=== PATIENT | female | born 1950 | race Caucasian/White ===

== ENCOUNTER 2020-10-18 06:26 | Day surgery (SDC) | payer MEDICARE, OTHER, SELFPAY ==
[2020-10-14 14:52] VITALS: BMI 32.3
[2020-10-18] VITALS (7 sets, daily range): BP systolic 102–137; BP diastolic 59–84; PULSE 61–83; RESP 11–16; TEMP 35.8–36.6; O2SAT 89–95; BMI 33.9
[2020-10-18] MEDS: LACTATED RINGERS 1,000 ML 100 ML IV ×2 (07:09→08:42)
[2020-10-18 07:26] LABS: COVID19 -Nasal RAPID Negative (Negative)
--- NOTE | 2020-10-18 07:30 | PM.PREOP ---
Pre-operative Note Interval Note History & Physical reviewed/Exam performed by Physician: Yes Changes to H&P: No
[2020-10-18] MEDS: CEFAZOLIN 1 GM VIAL 2 GM IV (08:00)
--- NOTE | 2020-10-18 08:15 | SUR.OPER ---
Lithotomy on padded OR bed, head on pillow, arms secured on padded arm boards at <90 degrees abduction. Legs secured in padded yellow fins stirrups.
[2020-10-18] MEDS: [UNRECOGNIZED DRUG - OTHER] IRR (09:22)
--- NOTE | 2020-10-18 09:27 | P.OP_ITS ---
Operative Date/Time/Diagnoses Date of procedure: 10/18/20 Time of procedure: 09:27 Pre-op diagnosis: Recurrent bladder cancer Post-op diagnosis: same Procedure & Clinicians Procedure: 1. Transurethral resection of bladder tumor (less than 0.5 cm). 2. Cystoscopy and installation mitomycin-C (20 mg). Same procedure as scheduled: Yes Indications: Recurrent papillary neoplasm anterior bladder wall. Click Yes if Unassisted: Yes Anesthesia Type: General Operative Notes Findings: Solitary papillary recurrence located in the anterior bladder wall. Closure Type: not applicable Specimen(s): none sent Estimated Blood Loss (mL): 0 Blood products transfused: none Procedure in detail: Patient was positioned in supine was administered general anesthesia. She was then repositioned semi lithotomy and the lower abdomen, groin, and genitalia were prepped and draped in sterile fashion. Flexible cystoscope was then introduced in lower urinary tract with the findings as described above. Operative plan was to laser at blade the lesion. However, due to technical issues with the laser generator the lesion was cautery destroyed with the Bugbee. Hemostasis was excellent. The bladder was left partially filled and flexible cystoscope was then removed. A 16 Vietnamese Weston catheter was then inserted in the bladder the balloon inflated 10 cc and the contents drained. A 20 cc solution containing 20 mg mitomycin-C were then instilled in the bladder and catheter plug was placed for anticipated 2 hour postop retention. The patient was then repositioned supine, was awakened, and then transferred to [facility] in stable condition. Complications: none Post-operative Condition: stable Disposition: PACU Plan for aftercare: Discharge home
[2020-10-18] MEDS: OXYCODONE/ACETAMINOPHEN 5/325 TABLET 1 TAB PO (09:37)
--- NOTE | 2020-10-18 11:47 | SUR.PHASEII ---
Patient was very understanding through OPD care, in spite of bladder fullness. Urine/medication drained at 11:10 as ordered and ortega DC'd. HOB elevated and coffee was given. Denies pain/nausea. Stable and appreciative of care.
== END 2020-10-18 11:33 | disposition home or self-care (01) ==
PROVIDERS: PCP Nurse Practitioner Family; Referring Provider Specialist; Visit Provider Specialist
PROC: (CPT 52224; principal; 2020-10-18 07:45)
DX: C67.9 Malignant neoplasm of bladder, unspecified (principal); Z20.822 Contact with and (suspected) exposure to COVID-19; I10 Essential (primary) hypertension; E66.9 Obesity, unspecified; Z68.32 Body mass index [BMI] 32.0-32.9, adult
CPT/HCPCS: 52224; 82962; 87635; J0690; J1100; J2405; J2704; J3010; J9280

== ENCOUNTER → 2021-01-21 08:41 | Outpatient (CLI) | payer MEDICARE, OTHER, SELFPAY ==
[2021-01-21 11:29] LABS: COVID19 -Nasal RAPID Negative (Negative)
== END ==
PROVIDERS: PCP Nurse Practitioner Family; Visit Provider Specialist
DX: Z20.822 Contact with and (suspected) exposure to COVID-19 (principal)
CPT/HCPCS: 87635; C9803

== ENCOUNTER 2021-01-24 06:33 | Day surgery (SDC) | payer MEDICARE, OTHER, SELFPAY ==
[2021-01-19 11:58] VITALS: BMI 35.4
[2021-01-24] VITALS (9 sets, daily range): BP systolic 67–129; BP diastolic 40–78; PULSE 62–78; RESP 8–93; TEMP 36.3–37.2; O2SAT 8–95; BMI 35.4
[2021-01-24] MEDS: LACTATED RINGERS 1,000 ML 42 ML IV (07:09)
[2021-01-24] MEDS: ACETAMINOPHEN 325 MG TABLET 975 MG PO (07:18)
--- NOTE | 2021-01-24 07:28 | SUR.OPER ---
Lithotomy on padded OR bed, head on pillow, arms secured on padded arm boards at <90 degrees abduction. Legs secured in padded yellow fins stirrups.
--- NOTE | 2021-01-24 07:52 | PM.PREOP ---
Pre-operative Note Interval Note History & Physical reviewed/Exam performed by Physician: Yes Changes to H&P: No
[2021-01-24] MEDS: CEFAZOLIN 1 GM VIAL 2 GM IV (08:08)
[2021-01-24] MEDS: WATER FOR INJECTION,STERILE 20 ML, mitoMYcin 20 MG INTRAVESIC (08:30)
[2021-01-24] MEDS: BELLADONNA/OPIUM SUPPOSITORIES 1 EACH PR (08:32)
--- NOTE | 2021-01-24 08:45 | PM.OP.1 ---
Operative Date/Time/Diagnoses Date of procedure: 01/24/21 Time of procedure: 08:46 Pre-op diagnosis: History of bladder cancer Post-op diagnosis: same Procedure & Clinicians Procedure: 1. Transurethral resection/destruction bladder tumor (0.5-2 cm). 2. Instillation mitomycin C (20 mg). Same procedure as scheduled: Yes Indications: 1. Recurrent neoplasm at bladder dome. 2. History of recurrent urothelial carcinoma. Surgeon: Lashanu Peralta Click Yes if Unassisted: Yes Anesthesia Type: General Operative Notes Findings: 1. Urethra-normal caliber without lesion or obstruction. 2. Trace bladder trabeculation. Normal ureteral orifices bilaterally. There is a red and raised neoplasm at the dome of bladder. Intraoperative photographs obtained pre and post treatment. Closure Type: not applicable Specimen(s): none sent Applied: catheter (Sixteen Somali silicone catheter.) Estimated Blood Loss (mL): 0 Blood products transfused: none Procedure in detail: The patient was positioned in supine and was administered general anesthesia. She was then repositioned semi lithotomy and the lower abdomen, genitalia, and groin were then prepped and draped in sterile fashion. A resectoscope was then advanced lower urinary tract under direct visualization with findings as described above. Intraoperative photographs were obtained of the lesion at the dome of the bladder. Next, the button electrode was fitted to the resectoscope and the lesion was cautery destroyed in its entirety. Post treatment intraoperative photographs were obtained. The resectoscope was then removed. A 16 Somali Weston catheter was then inserted in the bladder and the contents drained. The balloon was filled with 5 cc. 20 cc of mitomycin-C solution was instilled in the bladder the catheter was fitted with a plugged for anticipated 2 hour retention. The patient was then repositioned in supine, awakened, and transferred to PACU in stable condition. Complications: none Post-operative Condition: stable Disposition: PACU Plan for aftercare: Discharge home.
--- NOTE | 2021-01-24 09:01 | SUR.PHASEI ---
received to PACU after general anesthesia. Oral airway in place. No further airway assistance required. BP as noted. Medicated by Dr Moeller. See anesthesia record.
[2021-01-24] MEDS: OXYCODONE IR 5 MG TABLET PO (09:22)
[2021-01-24] MEDS: hydrOXYzine pamoate 25 MG CAPSULE PO (09:22)
--- NOTE | 2021-01-24 11:11 | SUR.PHASEII ---
At 1040 Bladder emptied into a ortega bag and placed in chemo box for disposal. 500 ml obtained
== END 2021-01-24 11:00 | disposition home or self-care (01) ==
PROVIDERS: PCP Nurse Practitioner Family; Referring Provider Specialist; Visit Provider Specialist
PROC: 0TBB8ZZ Excision of Bladder, Via Natural or Artificial Opening Endoscopic (ICD-10-PCS; CPT 52234; principal; 2021-01-24 07:45)
DX: C67.1 Malignant neoplasm of dome of bladder (principal); I10 Essential (primary) hypertension; Z87.891 Personal history of nicotine dependence; Z85.528 Personal history of other malignant neoplasm of kidney; Z90.5 Acquired absence of kidney
CPT/HCPCS: 52234; 51720; 82962; 85610; J0690; J1100; J2405; J2704; J3010; J9280

== ENCOUNTER → 2021-08-25 09:29 | Outpatient (CLI) | payer MEDICARE, OTHER, SELFPAY | PROVIDERS: PCP Nurse Practitioner Family; Visit Provider Specialist | DX: R30.0 Dysuria (principal); N21.0 Calculus in bladder; Z85.51 Personal history of malignant neoplasm of bladder; Z85.528 Personal history of other malignant neoplasm of kidney | CPT/HCPCS: 52000; 81002; 87086; 99215 ==

== ENCOUNTER → 2021-09-02 09:53 | Outpatient (CLI) | payer MEDICARE, OTHER, SELFPAY ==
[2021-09-02 10:30] LABS: COVID19 -Nasal RAPID Negative (Negative)
== END ==
PROVIDERS: PCP Nurse Practitioner Family; Visit Provider Specialist
DX: Z20.822 Contact with and (suspected) exposure to COVID-19 (principal)
CPT/HCPCS: 87635; C9803

== ENCOUNTER 2021-09-05 07:24 | Day surgery (SDC) | payer MEDICARE, OTHER, SELFPAY ==
[2021-09-05] VITALS (10 sets, daily range): BP systolic 113–140; BP diastolic 66–87; PULSE 68–79; RESP 12–16; TEMP 36.2–36.8; O2SAT 90–98; BMI 34.9
[2021-09-05] MEDS: LACTATED RINGERS 1,000 ML 42 ML IV (08:01)
--- NOTE | 2021-09-05 10:20 | PM.PREOP ---
Pre-operative Note COVID-19 Criteria for continued procedure: Expected advancement of disease process, Possibility delay results in more complex future surgery or treatment, Deterioration of the patient's condition or overall health, Delay expected to result in less-positive ultimate med/surg outcome and Non-surgical alternatives not available or appropriate per current SOC Interval Note History & Physical reviewed/Exam performed by Physician: Yes Changes to H&P: No
[2021-09-05] MEDS: CEFAZOLIN 2 GM/20 ML SYRINGE IV (11:03)
[2021-09-05] MEDS: BELLADONNA/OPIUM SUPPOSITORIES 1 EACH PR (11:50)
--- NOTE | 2021-09-05 12:02 | PM.OP.1 ---
Operative Date/Time/Diagnoses Date of procedure: 09/05/21 Time of procedure: 12:02 Pre-op diagnosis: 1. Dystrophic bladder calculus right dome. 2. History of bladder cancer. Post-op diagnosis: same Procedure & Clinicians Procedure: 1. Cystoscopy/laser lithotripsy of adherent/imbedded dystrophic calcification of right dome. 2. Cystoscopy/installation mitomycin-C (20 mg). Same procedure as scheduled: No (Intraoperative decision to not perform bladder biopsy.) Indications: 1. Dystrophic calcification right bladder dome. 2. History of bladder cancer. Surgeon: Lashaun Peralta Click Yes if Unassisted: Yes Anesthesia Type: General Operative Notes Findings: 1. Urethra-normal caliber without lesion or obstruction. 2. Bladder-trace trabeculation. Normal ureteral orifice on the right. Surgically absent on the left ureteral orifice. There is an ovoid dystrophic calcification at the right dome adherent to the under lining mucosa. There is surrounding erythema, that on today's examination with rigid cystoscopy an optimal bladder distention under anesthesia, looks most consistent with inflammation rather than CIS. Decision made intraoperatively to not perform bladder biopsy with full duration. Closure Type: not applicable Specimen(s): other (Bladder calculus material) Applied: catheter (16 Guinean Weston catheter.) Estimated Blood Loss (mL): 2 Blood products transfused: none Procedure in detail: The patient was positioned supine was administered general anesthesia. She was then repositioned semi lithotomy and the lower abdomen, genitalia, and groin were then prepped and draped in sterile fashion. The 22 Guinean panendoscope was then passed the lower urinary tract with the findings as described above. A standard alligator toothed foreign body grasper was used and attempt dislodge and remove the calculus but was unsuccessful due to inadequate jaw strength and length. The 25 Guinean sheath was then exchanged for the 22 Guinean sheath and the manual stone uniform attendant implement was used to ?pluck the stone off the bladder wall. This was successful but the remained for 5 small calcifications adherent to the mucosa. The angulation of the jaws of the stone grasper were not satisfactory to remove these adhering calculi. Therefore, the laser was summoned. Three hundred sixty micron fiber was selected. All operating personnel and patient were fitted with laser safety eyewear. Laser lithotripsy of the remaining adherent calculus material was then performed. The laser mode was then changed to soft tissue and small areas of mucosal bleeding at the stone removal site were laser cauterized for hemostasis. The bladder was then partially filled all instrumentation was removed. A 16 Guinean Weston catheter was then inserted, and the balloon was inflated to 10 cc. The bladder contents were then drained completely. A 20 cc solution containing 20 mg mitomycin-C was then instilled in the bladder and catheter plug was placed for anticipated 2 hour postoperative retention. The patient was then repositioned in supine, was awakened, was transferred to a [facility] for transfer to PACU. Complications: none Post-operative Condition: stable Disposition: PACU Plan for aftercare: Discharge home.
--- NOTE | 2021-09-05 17:36 | SUR.PHASEII ---
1344 late entry Mitomycin drained into closed ortega bag. Patient pleasant and improved comfort with urine drainage. She preferred to go home with the large drainage bag on; instructed and leg bag also given. Patient states that she has had this treatment two previous times and is comfortable with the ortega and process. No questions/concerns. Discharge delayed about 15 minutes while waiting for a ortega bag to arrive from materials (used second bag to drain chemo as more started coming out after the bag had been changed).
[2021-09-09 13:17] LABS: Carbonate Apatite 30 % (.); Magnesium ammon phos 70 % (.); Size 7x7 mm (.)
== END 2021-09-05 14:41 | disposition home or self-care (01) ==
PROVIDERS: PCP Nurse Practitioner Family; Referring Provider Specialist; Visit Provider Specialist
PROC: 3E1K78Z Irrigation of Genitourinary Tract using Irrigating Substance, Via Natural or Artificial Opening (ICD-10-PCS; CPT 51700; principal; 2021-09-05 09:15)
DX: N21.0 Calculus in bladder (principal); Z85.51 Personal history of malignant neoplasm of bladder; I10 Essential (primary) hypertension
CPT/HCPCS: 52317; 82365; C1771; J0690; J1100; J2405; J2704; J3010

== ENCOUNTER → 2021-12-08 10:19 | Outpatient (CLI) | payer MEDICARE, OTHER, SELFPAY | PROVIDERS: PCP Nurse Practitioner Family; Visit Provider Specialist | DX: N39.0 Urinary tract infection, site not specified (principal); N21.0 Calculus in bladder; Z85.51 Personal history of malignant neoplasm of bladder; Z85.528 Personal history of other malignant neoplasm of kidney | CPT/HCPCS: 52000; 87086; 99214 ==